=== PATIENT | male | born 1980 | race Caucasian/White ===

== ENCOUNTER 2025-05-30 09:34 | Emergency (ER) | payer BC | END 2025-05-30 10:26 | disposition home or self-care (01) | LOC: MW.ED 09:34 | DX: L03.313 Cellulitis of chest wall (principal); E03.9 Hypothyroidism, unspecified; Z79.890 Hormone replacement therapy; Z79.899 Other long term (current) drug therapy | CPT/HCPCS: 99282; A9270 ==